=== PATIENT | female | born 1995 | race African-American/Black ===

== ENCOUNTER 2018-07-18 20:03 | Emergency (ER) | payer OTHER, MEDICAID ==
[~2018-07-18] VITALS: Ht 162.6 cm; Wt 99.8 kg
[~2018-07-18 20:03] MED LIST: ADHD MEDICATION; DEXMETHYLPHENID10 M1 PO; DEXMETHYLPHENID10 MG; IBUPROFEN 200200 M1 PO; PENICILLIN V P500 MG PO; PREDNISONE50 MG PO; PROZAC10 MG; PROZAC20 M1 PO; SENOKOT-S1 TA1 PO; TRAMADOL 50 MG50 MG PO; TYLENOL325 MG PO; ULTRACET TABLE1 EACH PO; VENTOLIN HFA 1818 GM INH
[2018-07-18] MEDS ORDERED: ACETAMINOPHEN-1 EAC1 PO (20:27)
[2018-07-18] MEDS ORDERED: BACTRIM DS TAB1 EACH PO (20:27)
[2018-07-18 20:43] VITALS: BP 127/93
== END 2018-07-18 20:46 | disposition home or self-care (01) ==
LOC: M.ERS 20:03
DX: L02.411 Cutaneous abscess of right axilla (principal); Z90.49 Acquired absence of other specified parts of digestive tract

== ENCOUNTER 2019-06-21 19:22 | Emergency (ER) | payer OTHER, MEDICAID ==
[~2019-06-21] VITALS: Ht 162.6 cm; Wt 93.0 kg
[~2019-06-21 19:22] MED LIST changes: +ACETAMINOPHEN-1 EAC1 PO; +BACTRIM DS TAB1 EACH PO
[2019-06-21 19:58] LABS: ABSOLUTE BASOPHILS 0.1 thou/uL (0.0-0.2); ABSOLUTE EOSINOPHILS 0.1 thou/uL (0.0-0.7); ABSOLUTE LYMPHOCYTES 2.4 thou/uL (0.8-5.3); ABSOLUTE MONOCYTES 0.5 thou/uL (0.0-1.2); ABSOLUTE NEUTROPHILS 4.5 thou/uL (1.6-8.1); BASOPHILS 0.8 %; EOSINOPHILS 1.7 %; HEMATOCRIT 37.4 % (37.0-47.0); HEMOGLOBIN 12.6 gm/dL (12.0-15.0); LYMPHOCYTES 32.2 %; MCH 27.5 pg (26.0-34.0); MCHC 33.9 g/dL (28.0-37.0); MCV 81.3 fL (80.0-100.0); MONOCYTES 6.5 %; MPV 7.5 fl. (7.2-11.1); NUCLEATED RBCS 0 /100WBC; PLATELET COUNT* 339 thou/uL (150-400); POLYS 58.8 %; RDW-CV 14.7 % (10.5-14.5); WBC 7.6 thou/uL (4.0-11.0)
[2019-06-21 20:05] LABS: CALCIUM 9.3 mg/dL (8.5-10.1); CREATININE 0.9 mg/dL (0.6-1.3); POTASSIUM 3.7 mmol/L (3.5-5.1)
[2019-06-21 20:32] LABS: URINE BILIRUBIN NEGATIVE (Negative); URINE BLOOD 2+ (Negative); URINE CLARITY CLEAR; URINE COLOR YELLOW; URINE GLUCOSE-RANDOM NEGATIVE (Negative); URINE KETONES NEGATIVE (Negative); URINE LEUKOCYTES-REFLEX NEGATIVE (Negative); URINE NITRITE-REFLEX NEGATIVE (Negative); URINE PROTEIN NEGATIVE (Negative); URINE SPECIFIC GRAVITY 1.015 (1.005-1.030)
[2019-06-21 20:39] LABS: MUCUS None Seen strn/LPF (None Seen); SQUAMOUS >10 Many /LPF (0-3)
[2019-06-21 20:41] LABS: BACTERIA-REFLEX 1-9 Few /HPF (None Seen); CASTS None Seen /LPF (None Seen); CRYSTALS None Seen /LPF (None Seen); URINE RBC 0-2 Rare /HPF (0-2); URINE WBC-REFLEX None Seen /HPF (0-5)
[2019-06-21 20:57] VITALS: BP 149/90
== END 2019-06-21 20:58 | disposition home or self-care (01) ==
LOC: M.ERS 19:22
PROVIDERS: Emergency Medicine
DX: N93.9 Abnormal uterine and vaginal bleeding, unspecified (principal); Z90.49 Acquired absence of other specified parts of digestive tract

== ENCOUNTER 2019-10-13 20:28 | Emergency (ER) | payer OTHER, MEDICAID ==
[~2019-10-13] VITALS: Ht 162.6 cm; Wt 104.3 kg
[2019-10-13] MEDS ORDERED: ENBRACE HR SOF1 EACH PO (20:36)
[2019-10-13 20:51] LABS: URINE BILIRUBIN NEGATIVE (Negative); URINE BLOOD NEGATIVE (Negative); URINE CLARITY CLEAR; URINE COLOR YELLOW; URINE GLUCOSE-RANDOM NEGATIVE (Negative); URINE KETONES NEGATIVE (Negative); URINE LEUKOCYTES-REFLEX 1+ (Negative); URINE PROTEIN NEGATIVE (Negative); URINE SPECIFIC GRAVITY 1.015 (1.005-1.030); URINE UROBILINOGEN 0.2 E.U./dl (0.2-1.0)
[2019-10-13 20:54] LABS: URINE NITRITE-REFLEX POSITIVE (Negative)
[2019-10-13 20:59] LABS: SQUAMOUS >10 Many /LPF (0-3)
[2019-10-13 21:00] LABS: MUCUS None Seen strn/LPF (None Seen)
[2019-10-13 21:01] LABS: CASTS None Seen /LPF (None Seen); CRYSTALS None Seen /LPF (None Seen); URINE RBC None Seen /HPF (0-2); URINE WBC-REFLEX 6-15 Few /HPF (0-5)
[2019-10-13] MEDS ORDERED: KEFLEX500 M2 PO (21:05)
[2019-10-13 21:53] VITALS: BP 140/78
== END 2019-10-13 22:05 | disposition home or self-care (01) ==
LOC: M.ERS 20:28
PROVIDERS: Physician Assistant
DX: N39.0 Urinary tract infection, site not specified (principal); Z32.02 Encounter for pregnancy test, result negative; Z90.49 Acquired absence of other specified parts of digestive tract